=== PATIENT | female | born 1960 | race Caucasian/White ===

== ENCOUNTER → 2023-02-17 | Outpatient (REF) | payer OTHER | LOC: M SFHCDERM 17:55 | PROVIDERS: ATTEND Nurse Practitioner Family | DX: C44.619 Basal cell carcinoma of skin of left upper limb, including shoulder (principal) ==

== ENCOUNTER → 2023-05-17 | Outpatient (REF) | payer OTHER | LOC: M SFHCDERM 17:28 | PROVIDERS: ATTEND Physician Assistant | DX: C44.91 Basal cell carcinoma of skin, unspecified (principal) ==

== ENCOUNTER → 2023-10-21 | Outpatient (REF) | payer OTHER | LOC: M SFHCDERM 17:37 | PROVIDERS: ATTEND Nurse Practitioner Family | DX: T14.8XXA Other injury of unspecified body region, initial encounter (principal) ==